=== PATIENT | female | born 1995 | race Caucasian/White ===

== ENCOUNTER 2021-01-28 02:17 | Emergency (ER) | payer OTHER ==
--- NOTE | 2021-01-28 02:34 | EDM.PDOC ---
ED HPI GENERAL MEDICAL PROBLEM - General Chief Complaint: Upper Extremity Injury/Pain Stated Complaint: RIGHT ELBOW PAIN Time Seen by Provider: 01/28/21 02:21 Source of Information: Reports: Patient - History of Present Illness INITIAL COMMENTS - FREE TEXT/NARRATIVE: Dianne is a 25 y/o female who was working at [employer] and was using a wrench about 0100 and then after pulling hard on the torque wrench she started to have right elbow pain. She rated the pain sharp and 10/10 after it happened. She took Ibuprofen 400mg po at 0115 and now in the ER she reports the pain 5/10. No previous injury. Right Elbow Pain Score (Numeric/FACES): 5 - Related Data Allergies Allergy/AdvReac Type Severity Reaction Status Date / Time Penicillins Allergy Rash Verified 01/28/21 02:23 Home Meds: Home Meds . [No Known Home Meds] 01/28/21 [History] Review of Systems - Review of Systems Review Of Systems: See Below Constitutional: Reports: No Symptoms Eyes: Reports: No Symptoms Ears: Reports: No Symptoms Nose: Reports: No Symptoms Mouth/Throat: Reports: No Symptoms, Difficulty Swallowing Cardiovascular: Reports: No Symptoms GI/Abdominal: Reports: No Symptoms Genitourinary: Reports: No Symptoms Musculoskeletal: Reports: Joint Pain (right elbow) Skin: Reports: No Symptoms Neurological: Reports: No Symptoms Psychiatric: Reports: No Symptoms ED EXAM, GENERAL - Physical Exam Exam: See Below General Appearance: Alert, WD/WN, No Apparent Distress (Adult female sitting quietly in ER exam chair.) Ears: Hearing Grossly Normal Head: Atraumatic, Normocephalic Respiratory/Chest: No Respiratory Distress Cardiovascular: Normal Peripheral Pulses GI/Abdominal: Soft (Female) Exam: Deferred Rectal (Female) Exam: Deferred Extremities: Normal Inspection, Normal Range of Motion, Other (No obvious deformity noted, mild tenderness with palpation over the joint, no effusion appreciated, no brusing noted.) Neurological: Alert, Oriented, CN II-XII Intact, No Motor/Sensory Deficits Psychiatric: Normal Affect, Normal Mood Skin Exam: Warm, Dry, Intact, Normal Color Course - Vital Signs Text/Narrative:: 221 The patient was seen by the [employer]. Xray ordered. Last Recorded V/S: Last Vital Signs Temp 36.9 C 01/28/21 02:23 Pulse 95 01/28/21 02:23 Resp 12 01/28/21 02:19 BP 150/96 H 01/28/21 02:19 Pulse Ox 99 01/28/21 02:19 - Orders/Labs/Meds Orders: Active Orders 24 hr Category Date Time Status Elbow Min 3V Rt [CR] Stat Exams 01/28/21 02:27 Ordered - Radiology Interpretation Free Text/Narrative:: XR Right Elbow 3V=no acute findings (See final report) Departure - Departure Time of Disposition: 02:54 Disposition: Home, Self-Care 01 Clinical Impression: Elbow pain, right - Discharge Information Instructions: Pain Medicine Instructions, [id number], Tendinitis, [id number] Forms: ED Department Discharge Additional Instructions: -Ibuprofen 400mg oral every 6 hours for the next 48-72 hours then as needed -Acetaminophen 650mg oral every 6 hours as needed for pain -Rest as needed. -BRIE wrap to the right elbow for comfort -Apply ice packs as needed to help decrease inflammation -You may return to your next regularly scheduled shift, if you are unable to do so please follow up with your PCP -Return to the ER with any concerns Sepsis Event Note (ED) - Evaluation Sepsis Screening Result: No Definite Risk - Focused Exam Vital Signs: Vital Signs Temp Pulse Resp BP Pulse Ox 01/28/21 02:23 36.9 C 95 01/28/21 02:19 37.0 C 95 12 150/96 H 99 - Problem List & Annotations (1) Elbow pain, right SNOMED Code(s): 96157434 Code(s): M25.521 - PAIN IN RIGHT ELBOW Status: Acute Annotation/Comment:: -Neg xray -Probable mild sprain or tendonitis - My Orders Last 24 Hours: My Active Orders 01/28/21 02:27 Elbow Min 3V Rt [CR] Stat - Assessment/Plan Last 24 Hours: My Active Orders 01/28/21 02:27 Elbow Min 3V Rt [CR] Stat Plan: See Below
== END 2021-01-28 03:05 | disposition home or self-care (01) ==
LOC: LL.ED 02:17
DX: M25.521 Pain in right elbow (principal); Z88.0 Allergy status to penicillin
CPT/HCPCS: 73080-RT; 99283; 99283-25

== ENCOUNTER 2022-11-26 04:02 | Emergency (ER) | payer BC, OTHER | END 2022-11-26 05:00 | disposition home or self-care (01) | LOC: LL.ED 04:02 | DX: S69.92XA Unspecified injury of left wrist, hand and finger(s), initial encounter (principal); Z88.0 Allergy status to penicillin; W22.8XXA Striking against or struck by other objects, initial encounter | CPT/HCPCS: 73130-LT; 99283 ==

== ENCOUNTER 2023-07-01 10:20 | Emergency (ER) | payer OTHER, BC ==
[2023-07-01] MEDS ORDERED: Acetaminophen 500 MG Tab PO ONE (10:43)
[2023-07-01] MEDS ORDERED: Naproxen 250 MG Tab PO ONE (10:44)
[2023-07-01] MEDS ORDERED: traMADol 50 MG Tab PO ONE (11:44)
[2023-07-01] MEDS ORDERED: Ketorolac 10 MG Tab PO ONE (11:44)
== END 2023-07-01 13:00 | disposition home or self-care (01) ==
LOC: LL.ED 10:20
DX: S69.92XA Unspecified injury of left wrist, hand and finger(s), initial encounter (principal); Z88.0 Allergy status to penicillin; X50.9XXA Other and unspecified overexertion or strenuous movements or postures, initial encounter
CPT/HCPCS: 73110-LT; 99283; A9270-GY